=== PATIENT | male | born 1975 | race Two or more races ===

== ENCOUNTER 2017-06-25 11:54 | Inpatient (IN) | payer OTHER ==
[2017-06-25 12:54] VITALS: BMI 27.4
--- NOTE | 2017-06-25 15:25 | HP ---
CIWA Score - CIWA Score Nausea/Vomitin Muscle Tremors: 3 Anxiety: 3 Agitation: 3 Paroxysmal Sweats: 2 Orientation: 0-Oriented Tacttile Disturbances: 2-Mild Itch/Numbness/Burn Auditory Disturbances: 2-Mild Harshness/Frighten Visual Disturbances: 1-Very Mild Sensitivity Headache: 2-Mild CIWA-Ar Total Score: 21 Admission ROS BHS - HPI Chief Complaint: i need help to stop drinking alcohol,cocaine,crystal meth,seeking detox,last detox [facility] Allergies/Adverse Reactions: Allergies Allergy/AdvReac Type Severity Reaction Status Date / Time No Known Allergies Allergy Verified 06/25/17 15:22 History of Present Illness: this 41 years old male with alcohol,cocaine and crystal meth,seeking detox, withdrawal symptom,seeking detox,last detox 04/30/17to 05/03/17 syncope alcohol related anxiety and insomnia longest period of sobriety 1 year weight loss nicotine dependence - Ebola screening Have you traveled outside of the country in the last 21 days: No Have you had contact with anyone from an Ebola affected area: No Have you been sick,other than usual withdrawal symptoms: No Do you have a fever: No - Review of Systems Constitutional: Chills, Loss of Appetite, Malaise, Night Sweats, Changes in sleep, Weakness, Unintentional Wgt. Loss EENT: reports: Nose Congestion Respiratory: reports: No Symptoms reported Cardiac: reports: No Symptoms Reported GI: reports: Diarrhea, Nausea, Vomiting, Abdominal cramping : reports: No Symptoms Reported Musculoskeletal: reports: Back Pain, Joint Pain, Muscle Pain, Joint Stiffness Integumentary: reports: Dryness Neuro: reports: Headache, Tremors Endocrine: reports: No Symptoms Reported Hematology: reports: No Symptoms Reported Psychiatric: reports: Judgement Intact, Mood/Affect Appropiate, Orientated x3, Anxious Patient History - Patient Medical History Hx Anemia: No Hx Asthma: No Hx Chronic Obstructive Pulmonary Disease (COPD): No Hx Cardiac Disorders: No Hx Hypertension: No Hx Hypercholesterolemia: No HX Cerebrovascular Accident: No Hx Seizures: No Hx Diabetes: No Hx Gastrointestinal Disorders: No Hx Liver Disease: No Hx Genitourinary Disorders: No Hx Sexually Transmitted Disorders: No Hx Renal Disease (ESRD): No Hx Thyroid Disease: No Hx Human Immunodeficiency Virus (HIV): No (NEGATIVE HX) Hx Hepatitis C: No Hx Depression: Yes (ANXIETY) Hx Suicide Attempt: No (DENIES PAST OR PRESENT S/I) Hx Bipolar Disorder: No Hx Schizophrenia: No Other Medical History: no sucidal,no homicidal - Patient Surgical History Past Surgical History: No Hx Neurologic Surgery: No Hx Cataract Extraction: No Hx Cardiac Surgery: No Hx Lung Surgery: No Hx Breast Surgery: No Hx Breast Biopsy: No Hx Abdominal Surgery: No Hx Appendectomy: No Hx Cholecystectomy: No Hx Genitourinary Surgery: No Hx Section: No Hx Orthopedic Surgery: No Anesthesia Reaction: No - PPD History Previous Implant?: Yes Documented Results: Negative w/proof Implanted On Prior [facility] Admission?: Yes Date: 05/02/17 PPD to be Administered?: No - Smoking Cessation Smoking history: Current every day smoker Have you smoked in the past 12 months: Yes Aproximately how many cigarettes per day: 20 Hx Chewing Tobacco Use: No Initiated information on smoking cessation: Yes 'Breaking Loose' booklet given: 06/25/17 - Substance & Tx. History Hx Alcohol Use: Yes Hx Substance Use: Yes Substance Use Type: Alcohol, Cocaine Hx Substance Use Treatment: Yes ([facility] 04/30/17 to 05/03/17) - Substances Abused Alcohol Route: Oral Frequency: Daily Amount used: 24 24 oz cans beers Age of first use: 14 Date of Last Use: 06/25/17 Crack Route: Smoking Frequency: Daily Amount used: $200 Age of first use: 17 Date of Last Use: 06/24/17 crystal meth Route: Injection Frequency: 1-3 times last 30 days Amount used: 1/2-1 gram Age of first use: 39 Date of Last Use: 06/22/17 Family Disease History - Family Disease History Family Disease History: Other: Mother (HTN; [place] IN REMISSION.) Admission Physical Exam S - Vital Signs Vital Signs: Vital Signs - 24 hr 06/25/17 12:48 Temperature 98.5 F Pulse Rate 105 H Respiratory 19 Rate Blood Pressure 133/66 - Physical General Appearance: Yes: Moderate Distress, Tremorous, Irritable, Sweating, Anxious HEENTM: Yes: Normal ENT Inspection, Normocephalic, [place], Pharynx Normal Respiratory: Yes: Lungs Clear, Normal Breath Sounds, No Respiratory Distress Neck: Yes: Within Normal Limits, Supple, Trachea in good position Breast: Yes: Within Normal Limits Cardiology: Yes: Within Normal Limits, Regular Rhythm, Regular Rate, S1, S2 Abdominal: Yes: Within Normal Limits, Normal Bowel Sounds, Non Tender, Flat, Soft Genitourinary: Yes: Within Normal Limits Back: Yes: Muscle Spasm Musculoskeletal: Yes: Gait Steady, Back pain Extremities: Yes: Within Normal Limits, Normal Range of Motion, Tremors Neurological: Yes: hot walker II-XII NML intact, Fully Oriented, Alert, Motor Strength 5/5 Integumentary: Yes: Dry Lymphatic: Yes: Within Normal Limits - Diagnostic (1) Alcohol dependence with uncomplicated withdrawal Current Visit: No Status: Acute Comment: . (2) Cocaine dependence with withdrawal Current Visit: No Status: Acute Comment: . (3) Nicotine dependence Current Visit: No Status: Acute Qualifiers: Nicotine product type: cigarettes Substance use status: in withdrawal Qualified Code(s): F17.213 - Nicotine dependence, cigarettes, with withdrawal Comment: . (4) Methamphetamine abuse Current Visit: No Status: Chronic Comment: . (5) Weight loss Current Visit: Yes Status: Acute Cleared for Admission [facility] - Detox or Rehab [facility] Level of Care: Medically Managed Detox Regimen/Protocol: Librium [facility] Breath Alcohol Content Breath Alcohol Content: 0.017 Urine Drug Screen - Results Drug Screen Negative: No Urine Drug Screen Results: JOSE-Cocaine, AMP-Amphetamines, BZO-Benzodiazepines
[2017-06-25] MEDS ORDERED: MAG HYDROX/AL HYDROX/SIMETH 30 ML UNIT-DOSE CUP PO PRN (15:47)
[2017-06-25] MEDS ORDERED: P-EPHED 60MG/TRIPROLIDI 2.5MG TABLET PO PRN (15:47)
[2017-06-25] MEDS ORDERED: chlordiazePOXIDE HCL 25 MG CAPSULE PO PRN (15:47)
[2017-06-25] MEDS ORDERED: MENTHOL/PHENOL 1 EACH UD MM PRN (15:47)
[2017-06-25] MEDS ORDERED: ACETAMINOPHEN 325 MG TABLET (FP) PO PRN (15:47)
[2017-06-25] MEDS ORDERED: guaiFENesin/D-METHORPHAN HB 10 ML UNIT-DOSE CUPS PO PRN (15:47)
[2017-06-25] MEDS ORDERED: hydrOXYzine PAMOATE 50 MG CAPSULE (FP) PO PRN (15:47)
[2017-06-25] MEDS ORDERED: MAGNESIUM CITRATE 300 ML BOTTLE PO PRN (15:47)
[2017-06-25] MEDS ORDERED: MAGNESIUM HYDROX 2400MG/30ML ORAL SUSPENSION 30 ML CUP PO PRN (15:47)
[2017-06-25] MEDS ORDERED: LOPERAMIDE HCL 2 MG CAPSULE PO PRN (15:47)
[2017-06-25] MEDS ORDERED: chlordiazePOXIDE HCL 25 MG CAPSULE PO ONE (16:00)
[2017-06-25] MEDS ORDERED: MELATONIN 5 MG TABLETS PO PRN (22:00)
[2017-06-25] MEDS: THIAMINE HCL 100 MG TABLET (FP) PO SCH (23:03)
[2017-06-25] MEDS: chlordiazePOXIDE HCL 25 MG CAPSULE PO SCH (23:03)
[2017-06-25] MEDS: TOLNAFTATE 1% CREAM 15 GM TUBE TP SCH (23:05)
[2017-06-26] MEDS: chlordiazePOXIDE HCL 25 MG CAPSULE PO SCH ×4 (05:18→22:14)
[2017-06-26 06:15] LABS: URINE APPEARANCE TURBID; URINE BILIRUBIN NEGATIVE (<2.0 mg/dL); URINE BLOOD NEGATIVE (NEGATIVE); URINE COLOR YELLOW; URINE GLUCOSE (UA) NEGATIVE (NEGATIVE); URINE KETONE NEGATIVE (NEGATIVE); URINE LEUK ESTERASE NEGATIVE (NEGATIVE); URINE NITRITE NEGATIVE (NEGATIVE); URINE PROTEIN NEGATIVE (NEGATIVE)
[2017-06-26 10:06] LABS: HEMATOCRIT 41.7 % (35.4-49); HEMOGLOBIN 13.7 GM/dL (11.7-16.9); MCH 29.1 pg (25.7-33.7); MCHC 32.9 g/dl (32.0-35.9); MEAN CELL VOLUME 88.5 fl (80-96); MEAN PLT VOLUME 7.9 fl (7.5-11.1); PLATELET COUNT 380 K/MM3 (134-434); RBC 4.71 M/mm3 (4.00-5.60); RDW 14.1 % (11.9-15.9); WHITE BLOOD COUNT 7.5 K/mm3 (4.0-10.0)
[2017-06-26 10:34] LABS: CHLORIDE 109 mmol/L (98-107); POTASSIUM 4.3 mmol/L (3.5-5.1); SODIUM 141 mmol/L (136-145)
[2017-06-26] MEDS: PRENATAL VITAMINS W/ FOLIC ACID TABLET (FP) PO SCH (10:47)
[2017-06-26] MEDS: IBUPROFEN 400 MG TABLET (FP) PO PRN ×2 (10:49→20:15)
[2017-06-26] MEDS: TOLNAFTATE 1% CREAM 15 GM TUBE TP SCH ×2 (10:50→22:14)
[2017-06-26 10:56] LABS: ALK PHOS 56 U/L (45-117); ANION GAP 5 (8-16); BILIRUBIN,TOTAL 0.2 mg/dL (0.2-1.0); BLOOD UREA NITROGEN 10 mg/dL (7-18); CALCIUM 8.2 mg/dL (8.5-10.1); CO2 27 mmol/L (21-32); CREATININE 0.9 mg/dL (0.7-1.3); GLUCOSE,RANDOM 96 mg/dL (74-106); SGOT/AST 17 U/L (15-37); SGPT/ALT 24 U/L (12-78); TOT PROT 5.9 g/dl (6.4-8.2)
--- NOTE | 2017-06-26 11:31 | EKG ---
Test Reason : Blood Pressure : / mmHG Vent. Rate : 092 BPM Atrial Rate : 092 BPM P-R Int : 150 ms QRS Dur : 084 ms QT Int : 380 ms P-R-T Axes : 061 066 035 degrees QTc Int : 469 ms NORMAL SINUS RHYTHM NORMAL ECG WHEN COMPARED WITH ECG OF 30-APR-2017 18:09, NONSPECIFIC T WAVE ABNORMALITY NOW EVIDENT IN INFERIOR LEADS Confirmed by JACLYN THOMSON, CELE ([id number]) on 06/26/2017 11:31:10 AM Referred By: Confirmed By:CELE ANAYA MD
--- NOTE | 2017-06-26 12:08 | PN ---
S CIWA - CIWA Score Nausea/Vomitin (DIARRHEA) Muscle Tremors: 4-Moderate,w/Arms Extend Anxiety: 4-Mod. Anxious/Guarded Agitation: 4-Moderately Restless Paroxysmal Sweats: 1-Minimal Palms Moist Orientation: 0-Oriented Tacttile Disturbances: 0-None Auditory Disturbances: 0-None Visual Disturbances: 0-None Headache: 0-None Present CIWA-Ar Total Score: 16 BHS Progress Note (SOAP) Subjective: C/O DIARRHEA MUSCLE ACHES SWEATS,TREMORS. Objective: 06/26/17 12:10 Vital Signs Temperature 96.4 F L 06/26/17 10:20 Pulse Rate 92 H 06/26/17 10:20 Respiratory Rate 18 06/26/17 10:20 Blood Pressure 119/54 06/26/17 10:20 O2 Sat by Pulse Oximetry (%) Laboratory Tests 06/25/17 06/26/17 06/26/17 22:10 07:30 07:30 WBC 7.5 RBC 4.71 Hgb 13.7 D Hct 41.7 MCV 88.5 MCH 29.1 MCHC 32.9 RDW 14.1 Plt Count 380 MPV 7.9 Sodium Potassium Chloride Carbon Dioxide Anion Gap BUN Creatinine Creat Clearance w eGFR Random Glucose Calcium Total Bilirubin AST ALT Alkaline Phosphatase Total Protein Albumin Urine Color Yellow Urine Appearance Turbid Urine pH 5.0 Ur Specific [place] 1.030 Urine Protein Negative Urine Glucose (UA) Negative Urine Ketones Negative Urine Blood Negative Urine Nitrite Negative Urine Bilirubin Negative Urine Urobilinogen 2.0 Ur Leukocyte Esterase Negative RPR Titer HIV 1&2 Antibody Screen Negative HIV P24 Antigen Negative 06/26/17 06/26/17 07:30 07:30 WBC RBC Hgb Hct MCV MCH MCHC RDW Plt Count MPV Sodium 141 Potassium 4.3 Chloride 109 H Carbon Dioxide 27 Anion Gap 5 L BUN 10 D Creatinine 0.9 Creat Clearance w eGFR > 60 Random Glucose 96 Calcium 8.2 L Total Bilirubin 0.2 D AST 17 D ALT 24 Alkaline Phosphatase 56 Total Protein 5.9 L Albumin 3.0 L Urine Color Urine Appearance Urine pH Ur Specific [place] Urine Protein Urine Glucose (UA) Urine Ketones Urine Blood Urine Nitrite Urine Bilirubin Urine Urobilinogen Ur Leukocyte Esterase RPR Titer Nonreactive HIV 1&2 Antibody Screen HIV P24 Antigen Assessment: 06/26/17 12:10 WITHDRAWAL SX Plan: CONTINUE DETOX [facility] PRN
--- NOTE | 2017-06-26 16:41 | CONSULT ---
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 Substance Abuse History: Confirmed by patient in this session.Details in current [facility] report : Smoking history: Current every day smoker. Have you smoked in the past 12 months: Yes. Aproximately how many cigarettes per day: 20. Hx Chewing Tobacco Use: No. Initiated information on smoking cessation: Yes. 'Breaking Loose' booklet given: 06/25/17. - Substance & Tx. History. Hx Alcohol Use: Yes. Hx Substance Use: Yes. Substance Use Type: Alcohol, Cocaine. Hx Substance Use Treatment: Yes ([facility] 04/30/17 to 05/03/17). - Substances Abused. Alcohol. Route: Oral. Frequency: Daily. Amount used: 24 24 oz cans beers. Age of first use: 14. Date of Last Use: 06/25/17. Crack. Route: Smoking. Frequency: Daily. Amount used: $200. Age of first use : 17. Date of Last Use: 06/24/17. crystal meth. Route: Injection. Frequency: 1-3 times last 30 days. Amount used: 1/2-1 gram. Age of first use: 39. Date of Last Use: 06/22/17 Medical History: Patient endorses good general health. Psychiatric History: Patient denies. Physical/Sexual Abuse/Trauma History: Patient denies. Additional Comment: Urine Drug Screen Results: JOSE-Cocaine, AMP-Amphetamines, BZO-Benzodiazepines.Noted. Mental Status Exam - Mental Status Exam Alert and Oriented to: Time, Place, Person Cognitive Function: Good Patient Appearance: Well Groomed (neatly shaven,tidy apppearance) Mood: Hopeful, Euthymic Affect: Appropriate, Normal Range Patient Behavior: Appropriate, Cooperative Speech Pattern: Clear Voice Loudness: Normal Thought Process: Intact, Goal Oriented Thought Disorder: Not Present Hallucinations: Denies Suicidal Ideation: Denies Homicidal Ideation: Denies Insight/Judgement: Poor Sleep: Poorly, Difficulty falling asleep (wants seroquel) Appetite: Good Muscle strength/Tone: Normal Gait/Station: Normal Psychiatric Findings - Problem List ([place] 1, 2,3) (1) Alcohol dependence with uncomplicated withdrawal Current Visit: Yes Status: Acute Comment: . (2) Cocaine dependence with withdrawal Current Visit: Yes Status: Acute Comment: . (3) Methamphetamine dependence Current Visit: Yes Status: Acute (4) Nicotine dependence Current Visit: Yes Status: Acute Qualifiers: Nicotine product type: cigarettes Substance use status: in withdrawal Qualified Code(s): F17.213 - Nicotine dependence, cigarettes, with withdrawal Comment: . (5) Insomnia Current Visit: Yes Status: Acute - Initial Treatment Plan Initial Treatment Plan: Psychoeducation.Sleep hygiene.Detoxification in progress.Seroquel 50 mg po hs (patient's request).Side effects/benefits discussed with Mr Vallejo.Consent (verbal) : given.Observation.
[2017-06-26] MEDS: THIAMINE HCL 100 MG TABLET (FP) PO SCH (22:14)
[2017-06-26] MEDS: QUEtiapine FUMARATE 50 MG TABLET PO SCH (22:14)
[2017-06-27] MEDS: chlordiazePOXIDE HCL 25 MG CAPSULE PO SCH ×3 (05:38→17:18)
[2017-06-27] MEDS: PRENATAL VITAMINS W/ FOLIC ACID TABLET (FP) PO SCH (10:38)
[2017-06-27] MEDS: TOLNAFTATE 1% CREAM 15 GM TUBE TP SCH ×2 (10:38→22:08)
--- NOTE | 2017-06-27 12:58 | PN ---
[facility] CIWA - CIWA Score Nausea/Vomitin-No Nausea/No Vomiting Muscle Tremors: 4-Moderate,w/Arms Extend Anxiety: 4-Mod. Anxious/Guarded Agitation: 4-Moderately Restless Paroxysmal Sweats: 1-Minimal Palms Moist Orientation: 0-Oriented Tacttile Disturbances: 0-None Auditory Disturbances: 0-None Visual Disturbances: 0-None Headache: 0-None Present CIWA-Ar Total Score: 13 S Progress Note (SOAP) Subjective: ANXIETY, SWEATS, MUSCLE ACHES,FATIGUE,"TOSSED AND TURN AT NIGHT". Objective: 06/27/17 13:00 Vital Signs Temperature 96.8 F L 06/27/17 09:29 Pulse Rate 119 H 06/27/17 09:29 Respiratory Rate 18 06/27/17 09:29 Blood Pressure 123/78 06/27/17 09:29 O2 Sat by Pulse Oximetry (%) Laboratory Last Values WBC 7.5 K/mm3 (4.0-10.0) 06/26/17 07:30 RBC 4.71 M/mm3 (4.00-5.60) 06/26/17 07:30 Hgb 13.7 GM/dL (11.7-16.9) D 06/26/17 07:30 Hct 41.7 % (35.4-49) 06/26/17 07:30 MCV 88.5 fl (80-96) 06/26/17 07:30 MCH 29.1 pg (25.7-33.7) 06/26/17 07:30 MCHC 32.9 g/dl (32.0-35.9) 06/26/17 07:30 RDW 14.1 % (11.9-15.9) 06/26/17 07:30 Plt Count 380 K/MM3 (134-434) 06/26/17 07:30 MPV 7.9 fl (7.5-11.1) 06/26/17 07:30 Sodium 141 mmol/L (136-145) 06/26/17 07:30 Potassium 4.3 mmol/L (3.5-5.1) 06/26/17 07:30 Chloride 109 mmol/L (98-107) H 06/26/17 07:30 Carbon Dioxide 27 mmol/L (21-32) 06/26/17 07:30 Anion Gap 5 (8-16) L 06/26/17 07:30 BUN 10 mg/dL (7-18) D 06/26/17 07:30 Creatinine 0.9 mg/dL (0.7-1.3) 06/26/17 07:30 Creat Clearance w eGFR > 60 (>60) 06/26/17 07:30 Random Glucose 96 mg/dL (74-106) 06/26/17 07:30 Calcium 8.2 mg/dL (8.5-10.1) L 06/26/17 07:30 Total Bilirubin 0.2 mg/dL (0.2-1.0) D 06/26/17 07:30 AST 17 U/L (15-37) D 06/26/17 07:30 ALT 24 U/L (12-78) 06/26/17 07:30 Alkaline Phosphatase 56 U/L (45-117) 06/26/17 07:30 Total Protein 5.9 g/dl (6.4-8.2) L 06/26/17 07:30 Albumin 3.0 g/dl (3.4-5.0) L 06/26/17 07:30 Urine Color Yellow 06/25/17 22:10 Urine Appearance Turbid 06/25/17 22:10 Urine pH 5.0 (5.0-8.0) 06/25/17 22:10 Ur Specific [place] 1.030 (1.001-1.035) 06/25/17 22:10 Urine Protein Negative (NEGATIVE) 06/25/17 22:10 Urine Glucose (UA) Negative (NEGATIVE) 06/25/17 22:10 Urine Ketones Negative (NEGATIVE) 06/25/17 22:10 Urine Blood Negative (NEGATIVE) 06/25/17 22:10 Urine Nitrite Negative (NEGATIVE) 06/25/17 22:10 Urine Bilirubin Negative (<2.0 mg/dL) 06/25/17 22:10 Urine Urobilinogen 2.0 mg/dL (0.2-1.0) 06/25/17 22:10 Ur Leukocyte Esterase Negative (NEGATIVE) 06/25/17 22:10 RPR Titer Nonreactive (NONREACTIVE) 06/26/17 07:30 HIV 1&2 Antibody Screen Negative 06/26/17 07:30 HIV P24 Antigen Negative 06/26/17 07:30 Assessment: 06/27/17 13:00 WITHDRAWAL SX Plan: CONTINUE DETOX
[2017-06-27] MEDS: QUEtiapine FUMARATE 50 MG TABLET PO SCH (22:07)
[2017-06-27] MEDS: chlordiazePOXIDE 5 MG CAPSULE PO SCH (22:07)
[2017-06-27] MEDS: THIAMINE HCL 100 MG TABLET (FP) PO SCH (22:09)
[2017-06-27] MEDS: IBUPROFEN 400 MG TABLET (FP) PO PRN (22:09)
[2017-06-28 05:46] VITALS: BP 121/72; PULSE 91; TEMP 96.7
[2017-06-28] MEDS: chlordiazePOXIDE 5 MG CAPSULE PO SCH (07:02)
[2017-06-28] MEDS: TOLNAFTATE 1% CREAM 15 GM TUBE TP SCH (09:31)
[2017-06-28] MEDS: PRENATAL VITAMINS W/ FOLIC ACID TABLET (FP) PO SCH (09:31)
--- NOTE | 2017-06-28 12:34 | DS ---
[facility] Detox Discharge Summary Admission Date: 06/25/17 Discharge Date: 06/28/17 - History Present History: Alcohol Dependence, Cocaine Dependence Additional Comments: PT SIGNED OUT AMA. ALERT O X 3. NAD. Pertinent Past History: PLEASE SS DX BELOW - Physical Exam Results Vital Signs: Vital Signs Temperature 96.7 F L 06/28/17 05:46 Pulse Rate 91 H 06/28/17 05:46 Respiratory Rate 18 06/28/17 05:46 Blood Pressure 121/72 06/28/17 05:46 O2 Sat by Pulse Oximetry (%) Pertinent Admission Physical Exam Findings: WITHDRAWAL SX Laboratory Tests 06/25/17 06/26/17 06/26/17 22:10 07:30 07:30 WBC 7.5 RBC 4.71 Hgb 13.7 D Hct 41.7 MCV 88.5 MCH 29.1 MCHC 32.9 RDW 14.1 Plt Count 380 MPV 7.9 Sodium Potassium Chloride Carbon Dioxide Anion Gap BUN Creatinine Creat Clearance w eGFR Random Glucose Calcium Total Bilirubin AST ALT Alkaline Phosphatase Total Protein Albumin Urine Color Yellow Urine Appearance Turbid Urine pH 5.0 Ur Specific [place] 1.030 Urine Protein Negative Urine Glucose (UA) Negative Urine Ketones Negative Urine Blood Negative Urine Nitrite Negative Urine Bilirubin Negative Urine Urobilinogen 2.0 Ur Leukocyte Esterase Negative RPR Titer HIV 1&2 Antibody Screen Negative HIV P24 Antigen Negative 06/26/17 06/26/17 07:30 07:30 WBC RBC Hgb Hct MCV MCH MCHC RDW Plt Count MPV Sodium 141 Potassium 4.3 Chloride 109 H Carbon Dioxide 27 Anion Gap 5 L BUN 10 D Creatinine 0.9 Creat Clearance w eGFR > 60 Random Glucose 96 Calcium 8.2 L Total Bilirubin 0.2 D AST 17 D ALT 24 Alkaline Phosphatase 56 Total Protein 5.9 L Albumin 3.0 L Urine Color Urine Appearance Urine pH Ur Specific [place] Urine Protein Urine Glucose (UA) Urine Ketones Urine Blood Urine Nitrite Urine Bilirubin Urine Urobilinogen Ur Leukocyte Esterase RPR Titer Nonreactive HIV 1&2 Antibody Screen HIV P24 Antigen - Treatment Hospital Course: Discharged Condition Good - Medication Discharge Medications: Ambulatory Orders NK [No Known Home Medication] 01/31/15 - Diagnosis (1) Weight loss Status: Acute (2) Alcohol dependence with uncomplicated withdrawal Status: Acute (3) Cocaine dependence with withdrawal Status: Acute (4) Nicotine dependence Status: Acute Qualifiers: Nicotine product type: cigarettes Substance use status: in withdrawal Qualified Code(s): F17.213 - Nicotine dependence, cigarettes, with withdrawal (5) Methamphetamine abuse Status: Acute - AMA Did Patient Leave Against Medical Advice: Yes (AMA)
[2017-06-28] MEDS ORDERED: chlordiazePOXIDE HCL 10 MG CAPSULE PO SCH (23:00)
== END 2017-06-28 09:10 | disposition left against medical advice (07) | DRG 770 ==
LOC: YASAS 11:54 → Y3N 15:42
PROVIDERS: ADMIT Internal Medicine; ATTEND Internal Medicine
PROC: HZ2ZZZZ Detoxification Services for Substance Abuse Treatment (ICD-10-PCS; principal; 2017-06-25)
DX: F10.230 Alcohol dependence with withdrawal, uncomplicated (principal); F14.20 Cocaine dependence, uncomplicated; F15.20 Other stimulant dependence, uncomplicated; F17.213 Nicotine dependence, cigarettes, with withdrawal; G47.00 Insomnia, unspecified; Z59.0 Homelessness
CPT/HCPCS: 36415; 80053; 81003; 85027; 86593; 87389; 93005; 93010